=== PATIENT | female | born 1950 | race Caucasian/White ===

== ENCOUNTER 2018-11-01 08:26 | Day surgery (SDC) | payer OTHER ==
[2018-11-01] MEDS ORDERED: fentaNYL 0.05 MG/ML VIAL ONE (10:51)
[2018-11-01] MEDS ORDERED: LIDOCAINE 2% 100 MG/5 ML UJET TP ONE (10:52)
[2018-11-01] MEDS ORDERED: fentaNYL 0.05 MG/ML VIAL IVP ONE (11:44)
== END 2018-11-01 12:45 | disposition home or self-care (01) ==
LOC: MDS 08:26 → MMU 08:26 → MDS 12:45
PROVIDERS: ATTEND Internal Medicine Gastroenterology
DX: D12.3 Benign neoplasm of transverse colon (principal); D64.9 Anemia, unspecified; Z90.710 Acquired absence of both cervix and uterus; Z88.0 Allergy status to penicillin; Z79.899 Other long term (current) drug therapy; Z79.84 Long term (current) use of oral hypoglycemic drugs
CPT/HCPCS: 45385; J3010